=== PATIENT | male | born 1950 | race Caucasian/White ===

== ENCOUNTER 2020-12-28 14:49 | Emergency (ER) | payer MEDICARE ==
[~2020-12-28 14:49] MED LIST: Iopamidol-370 76% 500 ML 1 ML ONE
[2020-12-28 15:53] LABS: #Eosinphils 0.1 thou/uL (0.0-0.7); #Monocytes 0.4 thou/uL (0.11-0.59); #Neutrophils 6.6 thou/uL (1.40-6.50); %Basophils 0.2 % (0.0-1.0); %Eosinophils 0.6 % (0.0-10.0); %Lymphocytes 22.2 % (21.0-51.0); %Monocytes 4.3 % (0.0-10.0); %Neutrophils 72.7 % (42.0-75.0); Hemoglobin 11.6 g/dL (14.0-18.0); Mean Corpuscular HGB CONC 33.5 g/dL (32.0-36.0); Mean Corpuscular Hemoglobin 31.2 pg (27.0-31.0); Mean Platelet Volume 7.1 fL (7.4-10.4); Platelet Count 133 thou/uL (130-400); RBC Distribution Width 13.5 % (11.5-14.5); Red Blood Cell (RBC) Count 3.73 mill/uL (4.70-6.10)
[2020-12-28] MEDS ORDERED: Dexamethasone 10 MG/ML VIAL ONE (15:53)
[2020-12-28] MEDS ORDERED: Ketorolac Tromethamine 30 MG/ML VIAL ONE (15:53)
[2020-12-28] MEDS ORDERED: Morphine 4 MG/ML VIAL ONE (15:53)
[2020-12-28 16:13] LABS: ALT (SGPT) 17 U/L (8-55); AST (SGOT) 17 U/L (5-34); Albumin 3.6 g/dL (3.4-4.8); Alkaline Phosphatase 81 U/L (40-110); Anion Gap 16 mmol/L (10-20); BUN (Urea Nitrogen) 23 mg/dL (8.4-25.7); Bilirubin, Total 0.2 mg/dL (0.2-1.2); CRP (Inflammatory) 0.88 mg/dL (= or < 0.5); Calc. Creatinine Clearance 0 mL/min (70-130); Calcium 8.9 mg/dL (7.8-10.44); Carbon Dioxide 25 mmol/L (23-31); Chloride 106 mmol/L (98-107); Globulin 2.9 g/dL (2.4-3.5); Glucose 130 mg/dL (80-115); Potassium 4.5 mmol/L (3.5-5.1); Protein, Total 6.5 g/dL (5.8-8.1); Sodium 142 mmol/L (136-145)
[2020-12-28 16:36] LABS: CKMB 3.1 ng/mL (0-6.6)
[2020-12-28 19:10] LABS: Lactic Acid 1.6 mmol/L (0.5-2.2)
[2020-12-28] MEDS ORDERED: Heparin 10,000 UNITS/ 10 ML VIAL ONE (19:41)
[2020-12-28 19:43] LABS: INR-International Normal Ratio 1.1; Prothrombin Time 14.2 sec (12.0-14.7)
[2020-12-28 19:44] LABS: PTT 34.8 sec (22.9-36.1)
[2020-12-28] MEDS ORDERED: Heparin 1,000 UNITS/ML VIAL SLOW IVP SCH (19:45)
[2020-12-28] MEDS ORDERED: Heparin 25,000 units/D5W 500 ML ONE (20:13)
[2020-12-28 21:13] LABS: SARS-CoV-2 NAA Rapid Test Not Detected (NotDetected)
[2020-12-28 21:50] LABS: Bilirubin Negative (Negative); Blood, Urine Negative (Negative); Clarity Clear (Clear); Glucose, Urine (Dipstick) Normal (Negative); Ketone, Urine Negative (Negative); Leukocyte Negative Leu/uL (Negative); Nitrite Negative (Negative); Protein, Urine (Dipstick) Negative (Neg-Trace); Specific Gravity, Urine 1.023 (1.002-1.036); Urobilinogen Normal mg/dL (Less than 2)
== END 2020-12-28 21:43 | disposition short-term general hospital (02) ==
LOC: ERS 14:49
DX: T82.528A Displacement of other cardiac and vascular devices and implants, initial encounter (principal); M54.5 Low back pain; E87.2 Acidosis; Z20.822 Contact with and (suspected) exposure to COVID-19; I10 Essential (primary) hypertension; Z79.82 Long term (current) use of aspirin; Z79.01 Long term (current) use of anticoagulants; Z79.899 Other long term (current) drug therapy
CPT/HCPCS: 36430; 72148; 75635; 80053; 81003; 82553; 83605; 83690; 84484; 85025; 85610; 85652; 85730; 86140; 86850; 86900; 86901; 86920; 87040; 87086; 93005; U0002; U0005; 36415; 51702; 96365; 96375; 96376; J1100; J1644; J1885; J2270; Q9967